=== PATIENT | female | born 1960 | race Caucasian/White ===

== ENCOUNTER 2024-10-05 06:31 | Emergency (ER) | payer MEDICARE, SELFPAY ==
--- OUTSIDE RECORDS SUMMARY | 2024-10-05 06:32 | XMS_ITS | Clinical Summary ---
Author Organization [facility] Address [address] [place] [address] Care Team Providers Care Brick Off Bearer Name Role Phone Linnette Almaraz Primary Care Provider [phone] Allergies No known active allergies Medications cholecalciferol (VITAMIN D-3) 2,000 unit capsule Take 1 capsule by mouth once daily. 0 06/12/2013 Active cetirizine (ZYRTEC) 10 mg tablet Take 1 Tablet (10 mg) by mouth once daily. 10/01/2024 Active predniSONE (DELTASONE) 20 mg tabletIndicatio ns:Urticaria Take 40 mg qd for 3 days, then 20 mg qd for 3 days, then 10 mg qd for 4 days. 11 Tablet 10/01/2024 Active predniSONE 20 mg tabletIndicatio ns:Chronic allergic rhinitis Take 1 Tablet (20 mg) by mouth once daily with a meal for 5 days. 5 Tablet 09/11/2024 09/17/19 Active Problems Problem Noted Date Diagnosed Date Dermatofibroma 09/14/2024 SK (seborrheic keratosis) 09/14/2024 Chronic allergic rhinitis 09/14/2024 Prediabetes 02/09/2024 Cystocele with prolapse 02/06/2023 Osteopenia 07/14/2014 Overview (07/14/2014): DXA 06/2014 Vitamin D deficiency 06/29/2014 Resolved Problems Problem Noted Date Diagnosed Date Resolved Date Routine adult health maintenance 05/06/2013 01/23/2022 Overview (05/06/2013): Colonoscopy 04/2013 diverticulosis repeat in 10 years Encounters Date Type Department Care Team Description 10/01/2024 8:50 AM CDT Office Visit [facility] [address] [place] [address] Linnette Almaraz PA Derm Problem (Hands and ankles are swollen-hard to bend knees-also has had a rash on her legs-started after mowing on Saturday-has taken zyrtec and put anti itch cream on the rash-took Benadryl last night and Voltaren gel on knees) 10/01/2024 Travel 09/28/2024 9:30 AM CDT Ancillary Procedure [facility] [address] [place] [address] 09/28/2024 Travel 09/24/2024 Travel 09/11/2024 8:30 AM CDT Office Visit [facility] [address] [place] [address] Linnette Almaraz PA Medicare [facility] Visit 09/11/2024 Travel 09/06/2024 Travel from Last 3 Months Immunizations Immunization Administration Dates Next Due COVID-19 vaccine (Moderna 100mcg/0.5mL) PF, MDV 02/02/2021 Influenza A (H1N1), Inactivated 04/01/2009 Influenza Virus, Unspecified 01/06/2019 Influenza, CCIIV3 (Age >=6 M O) (Egg Free) 01/14/2024 Influenza, IIV3 (Age 6-35 mos) 01/15/2016 Influenza, IIV3 (Age >=3 years) 12/24/2011,12/18,12/23/2009 Influenza, IIV4 01/06/2018, 7,01/16/2016,12/29 Influenza, IIV4 (=>6mos) MDV 01/05/2015 Influenza, Injectable, Mdck, Quadrivalent, W/preservative 01/08/2023,01/15/2022,01/05/2021 RSV, Recombinant ADJ Reconst ituted (Arexvy 120MCG/0.5mL) 02/12/2023 Td (Age >=7 Years) 07/25/1998 Tdap 02/26/2022,04/09/2008 Zoster (Shingrix-RZV, recombinant) 09/29/2019, Family History Medical History Relation Name Comments Cancer Father lung Heart Disease Father Cancer-breast Maternal Aunt Diagnosed in her 50's does have BRCA gene Diabetes Maternal Uncle Asthma Mother Heart Disease Mother valve replacem ent Other Mother diverticulosis Cancer-breast Other niece Niece- materna l Diabetes Paternal Grandmother Cancer Paternal Uncle 3 uncles Relation Name Status Comments Father Maternal Aunt Maternal Uncle Mother Other niece Paternal Grandmother Paternal Uncle Social History Tobacco Use Types Packs/Day Years Used Date Smoking Tobacco: Never Smokeless Tobacco: Never Tobacco Cessation:Counseling Given: Yes Alcohol Use Standard Drinks/Week Comments No 0 (1 standard drink = 0.6 oz pur e alcohol) PHQ-2 Answer Date Recorded PHQ-2 TOTAL SCORE 0 09/11/2024 Social Connections Answer Date Recorded Do you often feel lonely or isolated from those around you? 0 02/07/2024 Financial Resource Strain Answer Date R ecorded Difficulty of Paying Living Expenses 3 02/07/2024 Difficulty of Paying Living Expenses Not on file 02/07/2024 Food Insecurity Answer Date Recorded Do you worry your food will run out before you are able to buy more? 1 02/07/2024 Transportation Needs Answer Date Record ed Does lack of transportation keep you from medica l appointments? 1 02/07/2024 Does lack of transportation keep you from work, meetings or getting things that you need? 1 02/07/2024 Housing Stability Answer Date Recorded What is your housing situation today? 1 02/07/2024 Utilities Answer Date Recorded Do you have trouble paying f or utilities (for example, heat, electricity, water, phone)? 1 02/07/2024 Comments No Sex and Gender Information Value Date Recorded Sex Assigned at Not on file Legal Sex Female 7:02 AM COLORS CUSTODIAN Gender Identity Not on file Sexual Orientation Not on file Occupation Industry Job Start Date Job End Date Not on file Not on file Not on file Not on file Obstetrics History Para Term AB IAB SAB Ectopic Multiple Livin g Live Births 4 4 Date Outcome GA Total Labor Labor/2nd/3rd Weight Sex Type Anes PTL Gale A1 A5 Name Clin Last Filed Vital Signs Vital Sign Reading Time Taken Comments Blood Pressure 119/78 10/01/2024 8:55 AM CDT Pulse 92 10/01/2024 8:55 AM CDT Temperature 36.7 C (98 F) 09/09/2020 11:10 AM CDT Respiratory Rate - - Oxygen Saturation 97% 10/01/2024 8:55 AM CDT Inhaled Oxygen Concentration - - Weight 59.4 kg (131 lb) 10/01/2024 8:55 AM CDT Height 155.5 cm (5' 1.22) 09/11/2024 8:33 AM CD T Body Mass Index 24.57 09/11/2024 8:33 AM CDT Plan of Treatment Health Maintenance Due Date Last Done Comments Pneumococcal series for age 50+ (1 of 1 - PCV) 09/02/2009 COVID-19 vaccine series ( season) 2024 01/16/2024, 01/10/2023, 01/31/2022, Additional history exists Influenza Vaccine (#1) 2024 4, 01/08/2023, 01/15/2022, Additional history exists Mammogram for age 45-75 03/23/2025 03/23/20, 03/21/2023, 03/22/2022, Additional history exists BMI (ht and wt on same day) for age 18+ 09/11/2025 09/11/2024, 02/07/2024, 02/04/2023, Additional history exists Depression screening for age 12+ 09/11/2025 09/11/2024, 02/07/2024, 02/04/2023, Additional history exists Medicare Wellness for age 65+ 09/12/2025 09/11/2024 Pap test for age 21-65 10/04/2025 , 10/04/2020, 01/30/2017, Additional history exists Fecal testing sDNA-FIT (Cologuard) for age 45-75 08/05/2026 08/06/2023 Lipids for age 45-75 02/06/2029 02/07/2024, 02/04/2023, 01/23/2022, Additional history exists Tetanus booster 02/27/2032 02/26/2022, 03/25, 07/25/1998 Hepatitis C screening for age 18-79 Completed 06/29/2014 Zoster (shingles) series for age 50+ Completed 09/29/2019, 04/20/2019 HIV for age 15-65 Completed 02/04/2023 RSV vaccine for adults or Completed 02/12/2023 DEXA/DXA scan for age 65+ Completed 09/28/2024, Hepatitis B series for 19+ Aged Out N o longer eligible based on patient's age to complete this topic Procedures Procedure Name Priority Date/Time Associated Diagnosis Comments XR DXA BONE DENSITY 2 SITES AXIAL Routine 09/28/2024 9:44 AM CDT Postmenopausal XR MAMMO JACKELYN BILAT SCREEN Routine 03/23/2024 9:12 AM COLORS CUSTODIAN Encounter for screening mammogram for malignant neoplasm of breast LIPID PANEL W REFLEX MEASURED LDL Routine 02/07/2024 8:38 AM COLORS CUSTODIAN Screening cholesterol level SDNA-FIT EXTERNAL (COLOGUARD) Routine 08/06/2023 10:18 PM CDT Screening for malignant neoplasm of colon ANTI HIV 1/2 Routine 02/04/2023 8:15 AM COLORS CUSTODIAN Screening for HIV (human immunodeficiency virus) FRUIT DRYER THIN PREP PAP SCREEN IMAGED Routine 10/04/2020 8:19 AM CDT Screening for cervical cancer ANTI HCV Routine 06/29/2014 9:19 AM CDT Need for hepatitis C screening test from Last 3 Months or Most Recently Relevant to Health Maintenance Results * (ABNORMAL) XR DXA BONE DENSITY 2 SITES AXIAL (09/28/2024 9:44 AM CDT) Anatomical Region Laterality Modality Spine, HIPS, HIPL, HIPR Other Impressions 09/29/2024 1:19 PM CDT Osteopenia. RECOMMENDATIONS: The National Osteoporosis Foundation recommends pharmacologic treatment for patients with T-scores of -2.5 or less, patients with prior history of fragility fractures, or patients with 10-year probability of greater than 3% at hips or greater than 20% of suffering major osteoporotic fractures. Recommend continued optimization of calcium and vitamin D intake through dietary means and/or supplementation and regular exercise. Repeat scan recommended in 3-5 years. Serena Jones PA-C [facility] 09/29/2024 Narrative 09/29/2024 1:19 PM CDT For Patients: Results are automatically released to your [facility] account once available, in compliance with federal regulations. This means that you may see your results before your provider has had a chance to review them. Please allow 2-3 business days for your provider to comment on the results. XR DXA Bone Mineral Density (BMD) EXAM LOCATION: [address] [address] PATIENT NAME: Sol De Leon July DATE OF : 1960 EXAM DATE: 09/28/2024 REQUESTING PROVIDER: Linnette Almaraz PA GENDER AT : female HEIGHT: 5' 1.22 (09/11/2024) WEIGHT: 130 lb (09/11/2024) MENOPAUSAL STATUS: Postmenopausal RACE/ETHNICITY: White RISK FACTORS: White Race CURRENT MEDICATION FOR BONE LOSS: NONE INDICATION: Post-Menopause COMPARISON DATE(S): 2014 DXA scans are compared to prior studies for a patient only when the two (or more) studies were performed on the same scanner. It is not possible to compare data generated on one scanner to data from another because there are not standards in DXA equipment. This applies even if the two scanners are made by the same chop saw operator. PROCEDURE: Dual-energy x-ray absorptiometry performed with routine technique. Reporting is completed in the form of a T-score. The T-score represents the standard deviation from peak bone mass based on young healthy adult. A Z-score is used for diagnosis in premenopausal women, and for men under the age of 50. FINDINGS: RESULT LUMBAR SPINE L1 - L4 BMD: 1.194 g/cm2 T-Score: + 0.0 Z-Score: + 1.8 Change from prior in 2015: Increase 1.4%. RESULTS FEMUR Left femoral neck BMD: 0.725 g/cm2 T-Score: - 2.3 Z-Score: - 0.7 Change from prior in 2015: Decrease 8.0%. Right femoral neck BMD: 0.780 g/cm2 T-Score: - 1.9 Z-Score: - 0.3 Change from prior in 2015: Decrease 7.1%. Left hip BMD: 0.841 g/cm2 T-Score: - 1.3 Z-Score: + 0.0 Change from prior in 2015: Decrease 4.6%. Right hip BMD: 0.862 g/cm2 T-Score: - 1.2 Z-Score: + 0.2 Change from prior in 2014: Decrease 6.4%. WHO criteria: Normal: T-score at or above -1 SD Osteopenia: T-score between -1.1 and -2.4 SD Osteoporosis: T-score at or below -2.5 SD FRAX RISK CALCULATION (USED FOR OSTEOPENIA ONLY): 10-year probability of major osteoporotic fracture: 11.9%. 10-year probability of hip fracture: 2.2%. us Linnette PIZANO DEXA Final Resu lt * XR MAMMO JACKELYN BILAT SCREEN (03/23/2024 9:12 AM COLORS CUSTODIAN) Anatomical Region Laterality Modality BREASTS, Breast Left, Breast Right Bilateral Mammography Impressions 03/23/2024 2:30 PM COLORS CUSTODIAN There is no radiographic evidence for malignancy. Recommend annual mammograms. MAMMOGRAM ASSESSMENT: ACR 1 Negative PATIENTS: You will also receive a letter with your examination results in an easy to read format. If you have questions about your results, please contact your referring provider. Narrative 03/23/2024 2:30 PM COLORS CUSTODIAN For Patients: As a result of the 21st Century Cures Act, medical imaging exams and procedure reports are released immediately into your electronic medical record. You may view this report before your referring provider. If you have questions, please contact your health care provider. XR MAMMO JACKELYN BILAT SCREEN [[id number]] CLINICAL HISTORY: This is an asymptomatic 63 y.o. patient. INDICATION FOR EXAM: Mammogram Screening. TECHNIQUE: CC & MLO views were obtained. This study was evaluated with the assistance of Computer-Aided Detection. Breast Tomosynthesis was used in interpretation. COMPARISON FILM: Yes 03/21/23 [facility] 03/19/22 [facility] FINDINGS: There are scattered areas of fibroglandular density. There are no dominant masses, suspicious micro calcifications or areas of architectural distortion. Linnette PIZANO MAMMO Final Resu lt * (ABNORMAL) LIPID PANEL W REFLEX MEASURED LDL (02/07/2024 8:38 AM COLORS CUSTODIAN) CHOLESTEROL, TOTAL 190 <200 mg/dL [facility] HDL CHOLESTEROL 74 > OR = 50 mg/dL [facility] TRIGLYCERIDES 58 <150 mg/dL [facility] LDL-CHOLESTEROL 102(H) mg/dL (calc) [facility] Comment: Reference range: <100 Desirable range <100 mg/dL for primary prevention; <70 mg/dL for patients with CHD or diabetic patients with > or = 2 CHD risk factors. LDL-C is now calculated using the Дмитрий-Yanez calculation, which is a validated novel method providing better accuracy than the Friedewald equation in the estimation of LDL-C. Дмитрий SS et al. LEVY. 2013;310(19): 4176-9541 (http://education.Samba.me/faq/DFL993) CHOL/HDLC RATIO 2.6 <5.0 (calc) [facility] NON HDL CHOLESTEROL 116 <130 mg/dL (calc) [facility] Comment: For patients with diabetes plus 1 major ASCVD risk factor, treating to a non-HDL-C goal of <100 mg/dL (LDL-C of <70 mg/dL) is considered a therapeutic option. Blood BLOOD SPECIMEN / Unknown 02/07/2024 8:38 AM COLORS CUSTODIAN 02/07/2024 8:41 AM COLORS CUSTODIAN Linnette PIZANO CHEMISTRY Final Resu lt [facility] [address] [place] [address], [facility] [address] [place] [address] * SDNA-FIT EXTERNAL (COLOGUARD) (08/06/2023 10:18 PM CDT) NONINV COLON CA DNA+OCC BLD SCRN STL-IMP Negative Negative 08/15/2023 1:18 AM CDT [facility] (CLIA #:[id number]) Comment: NEGATIVE TEST RESULT. A negative Cologuard result indicates a low likelihood that a colorectal cancer (CRC) or advanced adenoma (adenomatous polyps with more advanced pre-malignant features) is present. The chance that a person with a negative Cologuard test has a colorectal cancer is less than 1 in 1500 (negative predictive value >99.9%) or has an advanced adenoma is less than 5.3% (negative predictive value 94.7%). These data are based on a prospective cross-sectional study of 10,000 individuals at average risk for colorectal cancer who were screened with both Cologuard and colonoscopy. (Namrata Madsen. et al, N Engl J Med 2014;370(14):6561-5328) The normal value (reference range) for this assay is negative. COLOGUARD RE-SCREENING RECOMMENDATION: Periodic colorectal cancer screening is an important part of preventive healthcare for asymptomatic individuals at average risk for colorectal cancer. Following a negative Cologuard result, the [place] Cancer Society and U.S. Multi-Society Task Force screening guidelines recommend a Cologuard re-screening interval of 3 years. References: [place] Cancer Society Guideline for Colorectal Cancer Screening: https://www.cancer.org/cancer/uthpk-xeqrlc-gxclgj/hfonwxeim-cwtghlrly-efegzxz/ac s-rec ommendations.html.; Michael CHAVES, Donnie NAVARRO, Ralf GonzalezK, Colorectal Cancer Screening: Recommendations for Physicians and Patients from the U.S. Multi-Society Task Force on Colorectal Cancer Screening , Am J Gastroenterology 2017; 112:6976-4459. TEST DESCRIPTION: Composite algorithmic analysis of stool DNA-biomarkers with hemoglobin immunoassay. Quantitative values of individual biomarkers are not reportable and are not associated with individual biomarker result reference ranges. Cologuard is intended for colorectal cancer screening of adults of either sex, 45 years or older, who are at average-risk for colorectal cancer (CRC). Cologuard has been approved for use by the U.S. FDA. The performance of Cologuard was established in a cross sectional study of average-risk adults aged 50-84. Cologuard performance in patients ages 45 to 49 years was estimated by sub-group analysis of near-age groups. Colonoscopies performed for a positive result may find as the most clinically significant lesion: colorectal cancer [4.0%], advanced adenoma (including sessile serrated polyps greater than or equal to 1cm diameter) [20%] or non- advanced adenoma [31%]; or no colorectal neoplasia [45%]. These estimates are derived from a prospective cross-sectional screening study of 10,000 individuals at average risk for colorectal cancer who were screened with both Cologuard and colonoscopy. (Namrata Herrmann et al, N Engl J Med 2014;370(14):2295-8522.) Cologuard may produce a false negative or false positive result (no colorectal cancer or precancerous polyp present at colonoscopy follow up). A negative Cologuard test result does not guarantee the absence of CRC or advanced adenoma (pre-cancer). The current Cologuard screening interval is every 3 years. ([place] Cancer Society and U.S. Multi-Society Task Force). Cologuard performance data in a 10,000 patient pivotal study using colonoscopy as the reference method can be accessed at the following location: www.Bitvore/results. Additional description of the Cologuard test process, warnings and precautions can be found at www.AskUrd.com. Stool specimen (specimen) (Rectum) 08/06/2023 10:18 PM CDT 08/08/2023 12:56 PM CDT us Linnette PIZANO URINE Final Resu lt [facility] (CLIA #:[id number]) [place] [place] [address], * ANTI HIV 1/2 (02/04/2023 8:15 AM COLORS CUSTODIAN) HIV-1/HIV-2 SCREEN Non-Reacti ve Non-Reacti ve 02/04/2023 3:57 PM COLORS CUSTODIAN [facility] Comment:HIV-1 p24 and HIV-1/ HIV-2 Ab Not Detected. Blood BLOOD SPECIMEN / Unknown Venipuncture / Unknown 02/04/2023 8:15 AM COLORS CUSTODIAN 02/04/2023 8:16 AM COLORS CUSTODIAN us Linnette PIZANO SEND OUTS Final Resu lt [facility] [address] [place] [address], * FRUIT DRYER THIN PREP PAP SCREEN IMAGED (10/04/2020 8:19 AM CDT) Case Report Gynecologic Cytology Report Case: [id number] Authorizing Provider: Serena Jones PA Collected: 10/04/2020 0819 Ordering Location: [facility] Received: 10/04/2020 0853 Clinic First Screen: Samantha Lopez Specimen: FRUIT DRYER ThinPrep Vial Screening, Cervical 10/13/2020 10:15 AM CDT [facility] INTERPRETATION/ RESULT NEGATIVE FOR INTRAEPITHELIAL LESION OR MALIGNANCY (NIL) (none) 10/13/2020 10:15 AM CDT [facility] at 1015 CDT SPECIMEN ADEQUACY Satisfactory for evaluation Endocervical cells cannot be evaluated due to severe atrophy 10/13/2020 10:15 AM CDT [facility] HPV REQUEST HPV and PAP 10/13/2020 10:15 AM CDT [facility] Date of LMP unsure 10/13/2020 10:15 AM CDT [facility] Last Pap Date 01/30/17 10/13/2020 10:15 AM CDT [facility] Last Pap Result NIL 10:15 AM CDT [facility] Abnormal Pap or [place] Bx in last 5 years No 10/13/2020 10:15 AM CDT [facility] Menstrual Status Postmenopausal 10/13/2020 10:15 AM CDT [facility] [place] Bx Done Today No 10/13/2020 10:15 AM CDT [facility] Additional Information None given 10/13/2020 10:15 AM CDT [facility] Comment: Cytology is screened at [facility] - [address], [place] [address] and [facility] - [address], [place] [address] and [facility] - [address] [place] [address] Interpreted at [facility] - [address] [place] [address] [place] [address] Automated Review Successful 10/13/2020 10:15 AM CDT [facility] Comment:Specimen processed s uccessfully by automated visual arts teacher device, ThinPrep Imaging System, [employer] ANCILLARY TESTING FRUIT DRYER HPV Ordered, Please see separate report 10/13/2020 10:15 AM CDT [facility] Note The pap test is a screening technique, not a diagnostic procedure. It is used primarily to screen for squamous cancers and precursor lesions. Published studies have shown that it is subject to both false negative and false positive results. The pap test should not be used as the sole means to diagnose or exclude pre-malignant and malignant lesions. 10/13/2020 10:15 AM CDT [facility] Other (Cervical) Non-Blood / Unknown 10/04/2020 8:19 AM CDT 10/04/2020 8:53 AM CDT us Serena PIZANO PATHOLOGY/CYTOLOGY Keily santos Result [facility] [address] [place] [address], [place] * ANTI HCV (06/29/2014 9:19 AM CDT) HEPATITIS C ANTIBODY Non-Reacti ve Non-Reacti ve 06/29/2014 1:22 PM CDT [facility] Blood specimen (specimen) BLOOD SPECIMEN / Unknown Venipuncture / Unknown 06/29/2014 9:19 AM CDT 06/29/2014 9:19 AM CDT Narrative [facility] - 06/29/2014 1:22 PM CDT Antibodies to HCV not detected; does not exclude the possibility of exposure to HCV. us Nilsa Mendes GLUTEN SETTLING TENDER SEND OUTS F inal Result [facility] [address] [place] [address], from Last 3 Months or Most Recently Relevant to Health Maintenance Insurance [employer] MEDICARE ADVANTAGE MR Advance Directives Documents on File Type Date Recorded Patient Customs Verifier Expl anation Healthcare Directive 01/14/2024 11:20 AM Signed 01-09-24 Care Teams Brick Off Bearer Relationship Specialty Start Date End Date Linnette Almaraz PA [address] [place] [address] PCP - General Physician Chairman & Chief Executive Officer 07/26/23
[2024-10-05 06:39] VITALS: BP 153/68; PULSE 62; RESP 18; TEMP 36.6; O2SAT 99; BMI 24.6
--- NOTE | 2024-10-05 06:54 | ED.GENADULT ---
HPI - General Adult General Chief complaint: Abdominal Pain <Suzi Smith MD - Last Filed: 10/08/24 23:32> Stated complaint: abdominal pain <Suzi Smith MD - Last Filed: 10/08/24 23:32> Time Seen by Provider: 10/05/24 06:38 <Suzi Smith MD - Last Filed: 10/08/24 23:32> Source: patient and family <Suzi Smith MD - Last Filed: 10/08/24 23:32> Mode of arrival: ambulatory <Suzi Smith MD - Last Filed: 10/08/24 23:32> Limitations: no limitations <Suzi Smith MD - Last Filed: 10/08/24 23:32> History of Present Illness HPI narrative: 68-year-old female presents to the emergency department for evaluated of suprapubic area of abdominal pain, radiating slightly to the left. No prior history of similar symptoms. Came on suddenly and dramatically about 4 hours prior to arrival. No trauma or injury. Tried to have a bowel movement as she was having some cramping, was able to pass some stool but it did not help her symptoms. She had several bowel movements on Saturday in short succession, no loose diarrhea but she worries that there may be an infection now as she does have a history of uterine prolapse then even though she used clean technique, any time she has to push her uterus back in, she does worry that there could be infection. No fever. No hola dysuria. Was nauseated with onset of symptoms. No prior history of diverticulitis. No prior history of abdominal surgeries. No recent colonoscopy. No bloody stools or bloody urine noted. Did not try any interventions or pain medications prior to coming to the ED. Reports her past medical history is benign, no major long-term health problems. No prescription medications, no allergies. Nonsmoker. ROS notable for the lower abdominal symptoms only, otherwise denies times 12 systems. <Suzi Smith MD - Last Filed: 10/08/24 23:32> Related Data Home medications: Home Medications ?Medication ?Instructions ?Recorded ?Confirmed cetirizine 10 mg tablet (24Hour 10 mg PO DAILY PRN 10/05/24 10/05/24 Allergy) prednisone 20 mg tablet 20 mg PO DIRECTED 10/05/24 10/05/24 Previous Rx's ?Medication ?Instructions ?Recorded ciprofloxacin HCl 500 mg tablet 500 mg PO BID #14 tabs 10/05/24 (Cipro) ketorolac 10 mg tablet 10 mg PO Q6H PRN pain #20 tabs 10/05/24 ondansetron 4 mg disintegrating 4 mg PO Q6H #20 tabs 10/05/24 tablet oxycodone 5 mg tablet 5 mg PO Q6H PRN pain #12 tabs 10/05/24 tamsulosin 0.4 mg capsule 0.4 mg PO DAILY #10 caps 10/05/24 <Suzi Smith MD - Last Filed: 10/08/24 23:32> Allergies/adverse reactions: Allergies Allergy/AdvReac Type Severity Reaction Status Date / Time No Known Drug Allergies Allergy Verified 10/05/24 06:41 <Suzi Smith MD - Last Filed: 10/08/24 23:32> [facility] Medical History: Medical History Cystocele with prolapse ?N81.4 - Uterovaginal prolapse, unspecified (ICD-10) Seborrheic keratoses ?L82.1 - Other seborrheic keratosis (ICD-10) Vitamin D deficiency ?E55.9 - Vitamin D deficiency, unspecified (ICD-10) Raynauds phenomenon ?I73.00 - Raynaud's syndrome without gangrene (ICD-10) Osteopenia ?M85.80 - Other specified disorders of bone density and structure, unspecified site (ICD-10) Dermatofibroma ?D23.9 - Other benign neoplasm of skin, unspecified (ICD-10) Health care directive on file ?Z78.9 - Other specified health status (ICD-10) <Suzi Smith MD - Last Filed: 10/08/24 23:32> Surgical History: Surgical History History of colonoscopy ?Z98.890 - Other specified postprocedural states (ICD-10) <Suzi Smith MD - Last Filed: 10/08/24 23:32> Social History: Social History Smoking Status: Never smoker Second hand tobacco smoke exposure: No How often do you have a drink containing alcohol: never AUDIT-C Alcohol total score: 0 Non-prescribed substance use: denies use <Suzi Smith MD - Last Filed: 10/08/24 23:32> Exam Const: Vital Signs, click to edit/add: Vital Signs - 24 hr 10/05/24 06:39 10/05/24 08:36 Temperature 97.9 F 97.9 F Pulse Rate [Right Pulse Oximeter] 62 51 L Respiratory Rate 18 18 Blood Pressure [Ri ght Upper Arm] 153/68 H 127/75 Pulse Oximetry 99 97 Oxygen Delivery Me thod Room Air <Suzi Smith MD - Last Filed: 10/08/24 23:32> Vital Signs, click to edit/add: Vital Signs - 24 hr 10/05/24 06:39 10/05/24 08:36 Temperature 97.9 F 97.9 F Pulse Rate [Right Pulse Oximeter] 62 51 L Respiratory Rate 18 18 Blood Pressure [Ri ght Upper Arm] 153/68 H 127/75 Pulse Oximetry 99 97 Oxygen Delivery Me thod Room Air <Yo Barnett DO - Last Filed: 10/05/24 10:55> Documenting provider has reviewed patient's vital signs: yes <Suzi Smith MD - Last Filed: 10/08/24 23:32> Common normals: no apparent distress and alert <Suzi Smith MD - Last Filed: 10/08/24 23:32> General appearance: well kempt <Suzi Smith MD - Last Filed: 10/08/24 23:32> Other: Appears quite uncomfortable but excellent historian. Well nourished well hydrated <Suzi Smith MD - Last Filed: 10/08/24 23:32> HENMT: Common normals: normocephalic, head/scalp atraumatic, moist oral mucous membranes and oropharynx normal <Suzi Smith MD - Last Filed: 10/08/24 23:32> Head and scalp: normocephalic and atraumatic <MD Jerry Maddox Last Filed: 10/08/24 23:32> Face and sinus: normal facial exam <MD Jerry Maddox Last Filed: 10/08/24 23:32> Mouth: oral and palatal mucosa normal <MD Jerry Maddox Last Filed: 10/08/24 23:32> Eye: Common normals: conjunctivae normal <MD Jerry Maddox Last Filed: 10/08/24 23:32> General eye: normal appearance of both eyes <MD Jerry Maddox Last Filed: 10/08/24 23:32> Conjunctiva: conjunctiva(e) normal <MD Jerry Maddox Last Filed: 10/08/24 23:32> Neck & C-Spine: Common normals: full ROM and no lymphadenopathy <MD Jerry Maddox Last Filed: 10/08/24 23:32> General: normal visual inspection <MD Jerry Maddox Last Filed: 10/08/24 23:32> Resp: Common normals: normal respiratory effort and no use of accessory muscles <MD Jerry Maddox Last Filed: 10/08/24 23:32> Effort & inspection: able to speak in complete sentences <MD Jerry Maddox Last Filed: 10/08/24 23:32> Cardio: Common normals: regular rate, regular rhythm, S1 normal heart sound, S2 normal heart sound and no murmurs <MD Jerry Maddox Last Filed: 10/08/24 23:32> Rate: regular rate <MD Jerry Maddox Last Filed: 10/08/24 23:32> Rhythm: regular rhythm <MD Jerry Maddox Last Filed: 10/08/24 23:32> Heart sounds: S1 normal and S2 normal <MD Jerry Maddox Last Filed: 10/08/24 23:32> GI: Common normals: Normal to inspection, nondistended, normoactive bowel sounds present, soft to palpation, no hepatosplenomegaly and no masses <Suzi Smith MD - Last Filed: 10/08/24 23:32> Palpation: soft and no hepatosplenomegaly <Suzi Smith MD - Last Filed: 10/08/24 23:32> Other: Mildly tender to palpation of suprapubic region and left lower quadrant just near the midline. No other areas. <Suzi Smith MD - Last Filed: 10/08/24 23:32> : Common normals: no CVA tenderness <Suzi Smith MD - Last Filed: 10/08/24 23:32> Bladder/kidney exam: no CVA tenderness <Suzi Smith MD - Last Filed: 10/08/24 23:32> Back & Pelvis: Common normals: no CVA tenderness <Suzi Smith MD - Last Filed: 10/08/24 23:32> Extremity: Common normals: normal to inspection and normal capillary refill <Suzi Smith MD - Last Filed: 10/08/24 23:32> Neuro: Common normals: moves all extremities <Suzi Smith MD - Last Filed: 10/08/24 23:32> Sensorium/orientation: alert <MD Jerry Maddox Last Filed: 10/08/24 23:32> Psych: Appearance: well kempt <Suzi Smith MD - Last Filed: 10/08/24 23:32> Attitude: engaged <MD Jerry Maddox Last Filed: 10/08/24 23:32> Activity/motor behavior: appropriate eye contact <MD Jerry Maddox Last Filed: 10/08/24 23:32> Insight: insight good <MD Jerry Maddox Last Filed: 10/08/24 23:32> Judgement: judgment good <MD Jerry Maddox Last Filed: 10/08/24 23:32> Skin: Common normals: no rashes or lesions noted <MD Jerry Maddox Last Filed: 10/08/24 23:32> General skin exam: no rashes or lesions noted <Suzi Smith MD - Last Filed: 10/08/24 23:32> Course Course ED Course: 64-year-old female with severe suprapubic area pain highly suspicious for kidney stone. Cannot exclude diverticulitis, ovarian torsion, intra-abdominal infection, sigmoid volvulus, gastroenteritis, pancreatitis, musculoskeletal etiology, amongst others. Will give Toradol 15 mg IV x1 and 4 mg of Zofran, place peripheral IV. Obtain urinalysis 1st, if blood present, will plan for CT, noncontrast. If blood not present, anticipate CT with contrast. Blood work for typical intra-abdominal pathology. Await findings. <Suzi Smith MD - Last Filed: 10/08/24 23:32> Vital Signs Vital signs: Initial Vital Signs Temperature 97.9 F 10/05/24 06:39 Temperature Source Temporal Artery Scan 10/05/24 06:39 Pulse Rate 62 10/05/24 06:39 Respiratory Rate 18 10/05/24 06:39 Blood Pressure 153/68 H 10/05/24 06:39 Blood Pressure Mean 96 10/05/24 06:39 Blood Pressure Position Supine 10/05/24 06:39 Pulse Oximetry 99 10/05/24 06:39 Oxygen Delivery Method Room Air 10/05/24 06:39 Vital Signs Temperature 97.9 F 10/05/24 06:39 Pulse Rate 62 10/05/24 06:39 Respiratory Rate 18 10/05/24 06:39 Blood Pressure 153/68 H 10/05/24 06:39 Pulse Oximetry 99 10/05/24 06:39 Oxygen Delivery Method Room Air 10/05/24 06:39 Temperature 97.9 F 10/05/24 08:36 Pulse Rate 51 L 10/05/24 08:36 Respiratory Rate 18 10/05/24 08:36 Blood Pressure 127/75 10/05/24 08:36 Pulse Oximetry 97 10/05/24 08:36 Oxygen Delivery Method Room Air 10/05/24 06:39 <Suzi Smith MD - Last Filed: 10/08/24 23:32> Initial Vital Signs Temperature 97.9 F 10/05/24 06:39 Temperature Source Temporal Artery Scan 10/05/24 06:39 Pulse Rate 62 10/05/24 06:39 Respiratory Rate 18 10/05/24 06:39 Blood Pressure 153/68 H 10/05/24 06:39 Blood Pressure Mean 96 10/05/24 06:39 Blood Pressure Position Supine 10/05/24 06:39 Pulse Oximetry 99 10/05/24 06:39 Oxygen Delivery Method Room Air 10/05/24 06:39 Vital Signs Temperature 97.9 F 10/05/24 06:39 Pulse Rate 62 10/05/24 06:39 Respiratory Rate 18 10/05/24 06:39 Blood Pressure 153/68 H 10/05/24 06:39 Pulse Oximetry 99 10/05/24 06:39 Oxygen Delivery Method Room Air 10/05/24 06:39 Temperature 97.9 F 10/05/24 08:36 Pulse Rate 51 L 10/05/24 08:36 Respiratory Rate 18 10/05/24 08:36 Blood Pressure 127/75 10/05/24 08:36 Pulse Oximetry 97 10/05/24 08:36 Oxygen Delivery Method Room Air 10/05/24 06:39 <Yo Barnett DO - Last Filed: 10/05/24 10:55> Medications Administered Medications: Discontinued Medications Generic Name Dose Route Start Last Admin Trade Name Freq PRN Reason Stop Dose Admin Lactated Ringer's 1,000 mls @ 1,000 mls/hr 10/05/24 08:32 10/05/24 09:20 Lactated Ringers 1000 Ml IV 10/05/24 09:31 Infused .Q1H ONE Infusion Ketorolac Tromethamine 15 mg 10/05/24 06:51 10/05/24 07:03 Ketorolac 15 Mg/Ml Inj IVP 10/05/24 06:52 15 mg ONCE ONE Administration Ketorolac Tromethamine 15 mg 10/05/24 09:13 10/05/24 09:18 Ketorolac 15 Mg/Ml Inj IVP 10/05/24 09:14 15 mg ONCE ONE Administration Ondansetron HCl 4 mg 10/05/24 06:51 10/05/24 07:03 Ondansetron 2 Mg/Ml Inj IVP 10/05/24 06:52 4 mg ONCE ONE Administration <Suzi Smith MD - Last Filed: 10/08/24 23:32> Discontinued Medications Generic Name Dose Route Start Last Admin Trade Name Meryl PRN Reason Stop Dose Admin Lactated Ringer's 1,000 mls @ 1,000 mls/hr 10/05/24 08:32 10/05/24 09:20 Lactated Ringers 1000 Ml IV 10/05/24 09:31 Infused .Q1H ONE Infusion Ketorolac Tromethamine 15 mg 10/05/24 06:51 10/05/24 07:03 Ketorolac 15 Mg/Ml Inj IVP 10/05/24 06:52 15 mg ONCE ONE Administration Ketorolac Tromethamine 15 mg 10/05/24 09:13 10/05/24 09:18 Ketorolac 15 Mg/Ml Inj IVP 10/05/24 09:14 15 mg ONCE ONE Administration Ondansetron HCl 4 mg 10/05/24 06:51 10/05/24 07:03 Ondansetron 2 Mg/Ml Inj IVP 10/05/24 06:52 4 mg ONCE ONE Administration <Yo Barnett, DO - Last Filed: 10/05/24 10:55> Medical Decision Making MDM Narrative Medical decision making narrative: Patient is 64-year-old female signed out to me pending CT scan. CT scan returned showing left-sided obstructive uropathy due to multiple kidney stones. The largest is 5 x 1.5 mm there are 2 others that appear to be in the 2-3 mm range. They are at the UVJ. She also has several cysts more nonobstructing stones within the left kidney and some smaller ones within the right kidney. My colleague do not believe the patient a UTI and believed she is mostly dehydrated. Patient is not having any dysuria, polyuria, suprapubic pain at this time. Denied any urinary symptoms when I spoke to her. She did have a lactate of 2.6 which again my colleague thought was due to dehydration so I did give the patient a L of fluids. After that her lactate came down to 2.0. She also has a slightly elevated white count at 14 which again could be from the dehydration. Hemoglobin is also low at 10.8. She states she is typically at 13 and she gives blood every 4 months. Denies any lightheadedness, weakness, numbness. No other concerns noted. Kidney functions are slightly elevated and she has no history of kidney disease. This also could be from dehydration. What this time and not believe she has an infected kidney stone I will prophylactically put her on antibiotics just in case considering the elevated white blood cell count. Will put her on Cipro and give her Toradol and oxycodone for pain. Will also give her tamsulosin to help pass the stones. She was informed to strain her urine and follow up with her primary care provider. Of note she is on prednisone for a heat rash. She was on 40 mg for 3 days and then was on 20 mg for 2 days. She they have been tapering her off. She has had less than a 5 day burst of the steroids I do believe she is safe to stop it so she can take the Toradol. She is aware of this. I spoke to her on the phone. <Yo Barnett DO - Last Filed: 10/05/24 10:55> Lab Data Lab results reviewed: Yes I reviewed the patient's lab results <Suzi Smith MD - Last Filed: 10/08/24 23:32> Labs: Lab Results 10/05/24 10/05/24 10/05/24 Range/Units 06:55 07:15 09:26 WBC 14.46 H (4.50-11.00) K/uL RBC 3.39 L (4.00-5.20) m/uL Hgb 10.8 L (12.0-16.0) gm/dL Hct 31.8 L (33.0-51.0) % MCV 94 (80-100) fL MCH 32 (26-34) pg MCHC 34 (32-36) gm/dL RDW Coeff of Willie 12.9 (11.5-15.5) % Plt Count 431 (140-440) K/uL Neut % (Auto) 76.5 H (42.0-72.0) % Lymph % (Auto) 12.1 L (20-44) % [place] % (Auto) 10.7 (0.0-11.0) % Eos % (Auto) 0.1 (0.0-7.0) % Baso % (Auto) 0.3 (0.0-3.0) % Neut # (Auto) 11.10 H (1.7-7.0) K/uL Lymph # (Auto) 1.70 (0.90-2.90) K/uL [place] # (Auto) 1.50 H (0.00-0.90) K/UL Eos # (Auto) 0.00 (0.00-0.50) K/uL Baso # (Auto) 0.00 (0.00-0.30) K/uL Abs Immat Gran (auto) 0.00 (0.00-0.30) K/uL Imm/Tot Granulo (auto) 0.3 % Sodium 142 (135-149) mmol/L Potassium 3.2 L (3.6-5.1) mmol/L Chloride 107 (96-114) mmol/L Carbon Dioxide 29 (20-32) mmol/L Anion Gap 6 L (7-15) mEq/L BUN 23 (7-30) mg/dL Creatinine 0.9 (0.5-1.5) mg/dL Estimated Creat Clear 42.32 Estimated GFR 71 ml/min Glucose 114 (60-115) mg/dL Lactate 2.6 H 2.0 H (0.5-1.9) mmol/L Calcium 9.1 (8.4-10.6) mg/dL Total Bilirubin 0.5 (0.1-1.5) mg/dL AST 52 H (12-35) U/L ALT 37 H (4-35) U/L Alkaline Phosphatase 65 (40-150) U/L C-Reactive Protein < 0.5 L (0.5-1.0) mg/dL Total Protein 7.1 (6.0-8.3) g/dL Albumin 4.1 (3.3-5.0) g/dL Lipase 72 (23-300) U/L Urine Color Yellow (Yellow) Urine Appearance Slightly Cloudy A (Clear) Urine pH 5.5 (5.0-8.5) Ur Specific [place] 1.025 (1.000-1.030) Urine Protein 1+ A (Negative) Urine Glucose (UA) Negative (Negative) Urine Ketones Negative (Negative) Urine Blood 3+ A (Negative) Urine Nitrite Negative (Negative) Urine Bilirubin Negative (Negative) Urine Urobilinogen 0.2 (0.2-1.0) Ur Leukocyte Esterase 1+ A (Negative) Urine RBC 10-25 A (0-2) Urine WBC 5-10 A (0-5) Ur Squamous Epith Cells Few (None-Few) Urine Bacteria Moderate A (None) Urine Mucus Moderate A (None) <Suzi Smith MD - Last Filed: 10/08/24 23:32> Lab Results 10/05/24 10/05/24 10/05/24 Range/Units 06:55 07:15 09:26 WBC 14.46 H (4.50-11.00) K/uL RBC 3.39 L (4.00-5.20) m/uL Hgb 10.8 L (12.0-16.0) gm/dL Hct 31.8 L (33.0-51.0) % MCV 94 (80-100) fL MCH 32 (26-34) pg MCHC 34 (32-36) gm/dL RDW Coeff of Willie 12.9 (11.5-15.5) % Plt Count 431 (140-440) K/uL Neut % (Auto) 76.5 H (42.0-72.0) % Lymph % (Auto) 12.1 L (20-44) % [place] % (Auto) 10.7 (0.0-11.0) % Eos % (Auto) 0.1 (0.0-7.0) % Baso % (Auto) 0.3 (0.0-3.0) % Neut # (Auto) 11.10 H (1.7-7.0) K/uL Lymph # (Auto) 1.70 (0.90-2.90) K/uL [place] # (Auto) 1.50 H (0.00-0.90) K/UL Eos # (Auto) 0.00 (0.00-0.50) K/uL Baso # (Auto) 0.00 (0.00-0.30) K/uL Abs Immat Gran (auto) 0.00 (0.00-0.30) K/uL Imm/Tot Granulo (auto) 0.3 % Sodium 142 (135-149) mmol/L Potassium 3.2 L (3.6-5.1) mmol/L Chloride 107 (96-114) mmol/L Carbon Dioxide 29 (20-32) mmol/L Anion Gap 6 L (7-15) mEq/L BUN 23 (7-30) mg/dL Creatinine 0.9 (0.5-1.5) mg/dL Estimated Creat Clear 42.32 Estimated GFR 71 ml/min Glucose 114 (60-115) mg/dL Lactate 2.6 H 2.0 H (0.5-1.9) mmol/L Calcium 9.1 (8.4-10.6) mg/dL Total Bilirubin 0.5 (0.1-1.5) mg/dL AST 52 H (12-35) U/L ALT 37 H (4-35) U/L Alkaline Phosphatase 65 (40-150) U/L C-Reactive Protein < 0.5 L (0.5-1.0) mg/dL Total Protein 7.1 (6.0-8.3) g/dL Albumin 4.1 (3.3-5.0) g/dL Lipase 72 (23-300) U/L Urine Color Yellow (Yellow) Urine Appearance Slightly Cloudy A (Clear) Urine pH 5.5 (5.0-8.5) Ur Specific [place] 1.025 (1.000-1.030) Urine Protein 1+ A (Negative) Urine Glucose (UA) Negative (Negative) Urine Ketones Negative (Negative) Urine Blood 3+ A (Negative) Urine Nitrite Negative (Negative) Urine Bilirubin Negative (Negative) Urine Urobilinogen 0.2 (0.2-1.0) Ur Leukocyte Esterase 1+ A (Negative) Urine RBC 10-25 A (0-2) Urine WBC 5-10 A (0-5) Ur Squamous Epith Cells Few (None-Few) Urine Bacteria Moderate A (None) Urine Mucus Moderate A (None) <Yo Barnett, - Last Filed: 10/05/24 10:55> Imaging Data CT scan abdomen pelvis: Attestation: I have reviewed the pertinent imaging results. <Yo Barnett, - Last Filed: 10/05/24 10:55> Radiologist's impression: Left-sided obstructive uropathy due to a string of calculi in the distal left ureter at the left UVJ as described in the body of the report. Intrarenal calculi bilaterally, [id number]. Please note that all CT scans at this facility use dose modulation, iterative reconstruction, and/or weight-based dosing when appropriate to reduce radiation dose to as low as reasonably achievable. Dictated by Deon Wilcox MD @ 10/05/2024 8:19:44 AM <Yo Barnett DO - Last Filed: 10/05/24 10:55> Discharge Plan Discharge Clinical Impression: Urolithiasis Qualifiers: Urinary calculus location: ureter Qualified Code(s): N20.1 - Calculus of ureter <Suzi Smith MD - Last Filed: 10/08/24 23:32> Patient Disposition: Home, Self-Care <Suzi Smith MD - Last Filed: 10/08/24 23:32> Condition: Improved <Suzi Smith MD - Last Filed: 10/08/24 23:32> Instructions: How to Strain Your Urine (ED) <Suzi Smith MD - Last Filed: 10/08/24 23:32> Additional Instructions: Follow-up with your primary care provider. They may refer you to urology due to your multiple stones. You had slightly low hemoglobin at 10.8 along with slightly elevated liver enzymes. The elevated liver enzymes may be related to dehydration. There is not a clear urinary tract infection at this time but with these kidney stones a UTI would require emergent evaluation by Urology. I will place you on ciprofloxacin as precautionary. If you start developing fevers, chills, or overall feeling worse I recommend emergent re-evaluation. Take the tamsulosin to help pass the stones and strain your urine. Toradol was given for pain. While taking Toradol do not use other NSAIDs such as ibuprofen or naproxen. If the Toradol is not helping you can try the oxycodone. You are able to take Tylenol while taking these medications. <Suzi Smith MD - Last Filed: 10/08/24 23:32> Prescriptions: New ciprofloxacin HCl [Cipro] 500 mg tablet 500 mg PO BID Qty: 14 0RF ketorolac 10 mg tablet 10 mg PO Q6H PRN (Reason: pain) Qty: 20 0RF Rx Instructions: maximum total duration of 5 days from all oral, intranasal, or parenteral formulations tamsulosin 0.4 mg capsule 0.4 mg PO DAILY Qty: 10 2RF ondansetron 4 mg tablet,disintegrating 4 mg PO Q6H Qty: 20 0RF oxycodone 5 mg tablet 5 mg PO Q6H PRN (Reason: pain) Qty: 12 0RF No Action prednisone 20 mg tablet 20 mg PO DIRECTED cetirizine [24Hour Allergy] 10 mg tablet 10 mg PO DAILY PRN <Suzi Smith MD - Last Filed: 10/08/24 23:32> Follow Up/Referrals: Provider,Not a Local [Primary Care Provider, Family Practice] <Suzi Smith MD - Last Filed: 10/08/24 23:32> Stand Alone Forms: MyHealth Info Instructions <Suzi Smith MD - Last Filed: 10/08/24 23:32>
[2024-10-05] MEDS: ONDANSETRON 2 MG/ML inj 4 MG IVP (07:03)
[2024-10-05 07:05] LABS: Lactate* 2.6 mmol/L (0.5-1.9)
[2024-10-05 07:07] LABS: Hematocrit 31.8 % (33.0-51.0); Hemoglobin* 10.8 gm/dL (12.0-16.0); Immature Granulocytes Pct Auto 0.3 %; Mean Corpuscular HGB Conc 34 gm/dL (32-36); Mean Corpuscular Hemoglobin 32 pg (26-34); Mean Corpuscular Volume 94 fL (80-100); RDW Coefficient of Variation % 12.9 % (11.5-15.5); Red Blood Count 3.39 m/uL (4.00-5.20); White Blood Count* 14.46 K/uL (4.50-11.00)
[2024-10-05 07:16] LABS: Immature Granulocytes Abs Auto 0.00 K/uL (0.00-0.30); Lymphocytes Absolute Auto 1.70 K/uL (0.90-2.90); Slide Review Reflex No
[2024-10-05 07:19] LABS: Chloride* 107 mmol/L (96-114); Sodium* 142 mmol/L (135-149)
[2024-10-05 07:20] LABS: Albumin* 4.1 g/dL (3.3-5.0); Potassium* 3.2 mmol/L (3.6-5.1)
[2024-10-05 07:23] LABS: Alanine Aminotransferase* 37 U/L (4-35); Alkaline Phosphatase* 65 U/L (40-150); Anion Gap 6 mEq/L (7-15); Aspartate Amino Transferase* 52 U/L (12-35); Bilirubin Total* 0.5 mg/dL (0.1-1.5); Blood Urea Nitrogen* 23 mg/dL (7-30); Calcium* 9.1 mg/dL (8.4-10.6); Carbon Dioxide* 29 mmol/L (20-32); Creatinine* 0.9 mg/dL (0.5-1.5); Est. Creatinine Clearance* 42.32; Estimated Glomerular Filt Rate 71 ml/min; Glucose* 114 mg/dL (60-115); Total Protein* 7.1 g/dL (6.0-8.3)
[2024-10-05 07:33] LABS: Appearance Urine Slightly Cloudy (Clear)
--- NOTE | 2024-10-05 07:51 | CRLHL7_ITS ---
For Patients: As a result of the 21st Century Cures Act, medical imaging exams and procedure reports are released immediately into your electronic medical record. You may view this report before your referring provider. If you have questions, please contact your health care provider. INDICATION: Left groin and back pain. Microscopic hematuria. COMPARISON: None TECHNIQUE: CT examination of the abdomen and pelvis was performed without intravenous contrast. Thin section axial images were obtained from the lung bases through the pubic symphysis. Oral contrast was not administered. Please note that all CT scans at this facility use dose modulation, iterative reconstruction, and/or weight-based dosing when appropriate to reduce radiation dose to as low as reasonably achievable. FINDINGS: LUNG BASES: The lung bases as visualized appear normal.The heart size is normal at the lung bases. LIVER/BILIARY SYSTEM:The liver is normal in size and configuration given the lack of intravenous contrast. There is no visible focal mass and there is no intra- or extra hepatic biliary ductal dilatation.The gall bladder appears normal. ADRENALS: Normal non-contrast appearance KIDNEYS, URETERS and BLADDER:Faint intrarenal calculi on the right. Intrarenal calculi on the left, primarily in midpole. There is left hydronephrosis and left hydroureter. This is due to a string of small calculi at the left UVJ. There are 2 that appear to measure in the 2-3 millimeter range. A linear stone is identified in this area as well measuring about 5.0 by 1.5 millimeters. These are best seen on series 2, image 133, 134 and 135. SPLEEN:Normal non-contrast appearance. PANCREAS: Normal non-contrast appearance. RETROPERITONEUM and MESENTERY: There is no mass, adenopathy or aortic aneurysm. GASTROINTESTINAL SYSTEM: There is no evidence of diverticulitis, colitis, mechanical obstruction, or appendicitis. The small bowel as visualized appears normal. PELVIS: No mass, adenopathy or free fluid. OSSEOUS STRUCTURES and ABDOMINAL WALL: There is an age-appropriate appearance of the osseous structures.No significant abdominal wall defect. OTHER: No free fluid or free air. IMPRESSION: Left-sided obstructive uropathy due to a string of calculi in the distal left ureter at the left UVJ as described in the body of the report. Intrarenal calculi bilaterally, [id number]. Please note that all CT scans at this facility use dose modulation, iterative reconstruction, and/or weight-based dosing when appropriate to reduce radiation dose to as low as reasonably achievable. Dictated by Deon Wilcox MD @ 10/05/2024 8:19:44 AM (Electronically Signed)
[2024-10-05 08:36] VITALS: BP 127/75; PULSE 51; RESP 18; TEMP 36.6; O2SAT 97
[2024-10-05] MEDS: LACTATED RINGERS 1000 ML 1,000 ML IV (08:36)
[2024-10-05 09:31] LABS: Lactate* 2.0 mmol/L (0.5-1.9)
== END 2024-10-05 10:11 | disposition home or self-care (01) ==
PROVIDERS: Emergency Provider Family Medicine
DX: N20.9 Urinary calculus, unspecified (principal)
CPT/HCPCS: 36415; 74176; 80053; 81001; 83605; 83690; 85025; 86140; 87086; 96374; 96375; 99284; J1885; J2405; J7120